=== PATIENT | female | born 1995 | race Caucasian/White ===

== ENCOUNTER 2017-02-19 18:13 | Emergency (ER) ==
[2017-02-19 18:17] VITALS: BP 116/76; TEMP 98.5; BMI 22.5
--- NOTE | 2017-02-19 19:14 | ED.PDOC ---
General ED Provider: Dr. MIRANDA DODSON Chief Complaint: Abscess Stated Complaint: has a spot on just above the left eye brow, it is swollen, Time Seen by Physician: 19:13 Mode of Arrival: Walk-In Information Source: Patient, Family Primary Care Provider: PATITO DINH Nursing and Triage Documentation Reviewed and Agree: Yes Skin Complaint Exam - Skin/Soft Tissue Complaint/Exam Symptoms Are: Still present Timing: Constant Initial Severity: Mild Current Severity: Mild Character: Reports: Redness, Swelling, Raised, Painful Aggravating: Reports: Touch Alleviating: Reports: None Associated Signs and Symptoms: Denies: Fever, Chills, Itching, Drainage, Bruising, Tenderness, Red streaks, Joint swelling Related History: Reports: Similar episode Related Surgical History: Reports: None Skin Findings: Present: Erythema, Induration Differential Diagnoses: Abscess Review of Systems - Review Of Systems Constitutional: Reports: No symptoms Eyes: Reports: No symptoms Ears, Nose, Mouth, Throat: Reports: No symptoms Respiratory: Reports: No symptoms Cardiac: Reports: No symptoms GI: Reports: No symptoms : Reports: No symptoms Musculoskeletal: Reports: No symptoms Skin: Reports: No symptoms Neurological: Reports: No symptoms Endocrine: Reports: No symptoms Hematologic/Lymphatic: Reports: No symptoms All Other Systems: Reviewed and Negative Past Medical History - Past Medical History Previously Healthy: Yes Endocrine: Reports: None Cardiovascular: Reports: None Respiratory: Reports: None Hematological: Reports: None Gastrointestinal: Reports: None Genitourinary: Reports: None Neuro/Psych: Reports: None Musculoskeletal: Reports: None Cancer: Reports: None Last Menstrual Period: 2-3 weeks ago - Surgical History General Surgical History: Reports: None - Family History Family History: Reports: None - Social History Smoking Status: Never smoker Hx Substance Use: No Alcohol Screening: None Physical Exam - Physical Exam Appearance: Well-appearing, No pain distress, Well-nourished Eyes: VAISHALI, EOMI, Conjunctiva clear ENT: Ears normal, Nose normal, Oropharynx normal Respiratory: Airway patent, Breath sounds clear, Breath sounds equal, Respirations nonlabored Cardiovascular: RRR, Pulses normal, No rub, No murmur GI/: Soft, Nontender, No masses, Bowel sounds normal, No Organomegaly Musculoskeletal: Normal strength, ROM intact, No edema, No calf tenderness Skin: Warm, Dry, Normal color Neurological: Sensation intact, Motor intact, Reflexes intact, Cranial nerves intact, Alert, Oriented Psychiatric: Affect appropriate, Mood appropriate Critical Care Note - Critical Care Note Total Time (mins): 0 Course - Course Vital Signs: Temp Pulse Resp BP Pulse Ox 02/19/17 18:13 98.5 F 96 H 16 116/76 99 Departure - Departure Time of Disposition: 19:28 Disposition: HOME SELF-CARE Discharge Problem: Abscess Instructions: Abscess (ED) Condition: Stable Pt referred to PMD for follow-up: Yes Additional Instructions: DO NOT TOUCH IT Tylenol prn Increase hydration Allergies/Adverse Reactions: Allergies No Known Allergies Allergy (Unverified 02/19/17 18:17) Home Medications: Ambulatory Orders Ketoconazole 400 mg PO DIRECTED 02/19/17 Norgestimate-Ethinyl Estradiol [Trinessa Tablet] 1 each PO DAILY 02/19/17 Sulfamethoxazole/Trimethoprim [Bactrim Ds 800/160 mg] 1 tab PO Q12HR 02/19/17 Disposition Discussed With: Patient, Family
[2017-02-19] MEDS ORDERED: DECADRON 4 MG/ML SDV IM STA (19:27)
== END 2017-02-19 19:50 | disposition home or self-care (01) ==
LOC: ED 18:13
DX: L02.01 Cutaneous abscess of face (principal)
CPT/HCPCS: 87070; 87186; 96372; 99283